=== PATIENT | female | born 1965 | race Caucasian/White ===

== ENCOUNTER 2016-08-25 22:58 | Emergency (ER) | payer MEDICARE, OTHER ==
[~2016-08-25 22:58] MED LIST: DOXYCYCLINE HY100 MG PO; NEURONTIN 100100 MG PO
[2016-08-26 03:50] LABS: BUN/CREATININE RATIO 14 (0-10)
[2016-08-26 04:05] LABS: HEMOGLOBIN 9.3 gm/dl (12.3-15.3); RED BLOOD COUNT 3.86 M/UL (4.00-5.10); WHITE BLOOD COUNT 12.1 K/UL (4.5-11.0)
== END 2016-08-26 07:36 | disposition home or self-care (01) ==
LOC: ER1 22:58
PROVIDERS: Student in an Organized Health Care Education/Training Program
DX: M79.662 Pain in left lower leg (principal); M79.661 Pain in right lower leg; D72.829 Elevated white blood cell count, unspecified; J44.9 Chronic obstructive pulmonary disease, unspecified; J45.909 Unspecified asthma, uncomplicated; Z88.5 Allergy status to narcotic agent; Z79.899 Other long term (current) drug therapy
CPT/HCPCS: 36415; 80053; 83880; 85025; 85379; 96361; 96374; 99283; J2270

== ENCOUNTER → 2020-07-28 | Outpatient (CLI) | payer MEDICARE, OTHER ==
[~2020-07-28] MED LIST changes: +ASPIRIN CHEWABL81 MG PO; +FLEXERIL 10 MG10 MG PO; +IBUPROFEN600 MG PO; +NAPROSYN500 MG PO
[2020-07-28 16:00] LABS: HEMOGLOBIN 12.5 gm/dl (12.3-15.3); RED BLOOD COUNT 4.57 M/UL (4.00-5.10); WHITE BLOOD COUNT 5.5 K/UL (4.5-11.0)
[2020-07-28 16:24] LABS: BUN/CREATININE RATIO 14 (0-10)
[2020-07-30 06:12] LABS: HBSAG SCREEN Negative (Negative); HEP A AB, IGM Negative (Negative); HEP B CORE AB, IGM Negative (Negative); HEP C VIRUS AB <0.1 (0.0-0.9); VITAMIN D, 25-HYDROXY 33.3 ng/mL (30.0-100.0)
== END ==
LOC: LAB 13:37
PROVIDERS: Nurse Practitioner Family
DX: L03.90 Cellulitis, unspecified (principal); E05.20 Thyrotoxicosis with toxic multinodular goiter without thyrotoxic crisis or storm; E87.5 Hyperkalemia; E87.6 Hypokalemia; I10 Essential (primary) hypertension; E55.9 Vitamin D deficiency, unspecified
CPT/HCPCS: 36415; 80053; 80061; 80074; 83036; 84439; 84443; 84481; 85027

== ENCOUNTER 2021-08-29 06:53 | Inpatient (IN) | payer MEDICARE, OTHER ==
[~2021-08-29] VITALS: Ht 149.9 cm; Wt 68.9 kg
[2021-08-29 07:39] LABS: RED BLOOD COUNT 5.78 M/UL (4.00-5.10); WHITE BLOOD COUNT 13.9 K/UL (4.5-11.0)
[2021-08-29 08:01] LABS: BUN/CREATININE RATIO 23 (0-10)
[2021-08-29] MEDS ORDERED: BUPRENORPHIN-N1 EACH SL (10:34)
[2021-08-29] MEDS ORDERED: FAMOTIDINE40 MG PO (10:40)
[2021-08-29] MEDS ORDERED: WELLBUTRIN XL300 MG PO (10:40)
[2021-08-30 05:45] LABS: WHITE BLOOD COUNT 12.1 K/UL (4.5-11.0)
[2021-08-30 05:47] LABS: HEMOGLOBIN 12.2 gm/dl (12.3-15.3); RED BLOOD COUNT 4.52 M/UL (4.00-5.10)
[2021-08-30 14:24] LABS: BUN/CREATININE RATIO 21 (0-10)
[2021-08-31 06:51] LABS: HEMOGLOBIN 11.4 gm/dl (12.3-15.3); RED BLOOD COUNT 4.38 M/UL (4.00-5.10)
[2021-08-31 06:55] LABS: WHITE BLOOD COUNT 8.8 K/UL (4.5-11.0)
[2021-08-31 09:43] LABS: BUN/CREATININE RATIO 19 (0-10)
[2021-09-01 18:34] LABS: HEMOGLOBIN 11.7 gm/dl (12.3-15.3); RED BLOOD COUNT 4.39 M/UL (4.00-5.10); WHITE BLOOD COUNT 8.2 K/UL (4.5-11.0)
[2021-09-01 18:56] LABS: BUN/CREATININE RATIO 13 (0-10)
[2021-09-02 02:24] LABS: HEMOGLOBIN 11.3 gm/dl (12.3-15.3); RED BLOOD COUNT 4.33 M/UL (4.00-5.10); WHITE BLOOD COUNT 7.9 K/UL (4.5-11.0)
[2021-09-02 02:51] LABS: BUN/CREATININE RATIO 12 (0-10)
--- NOTE | 2021-09-02 07:10 | NUR ---
Tamia. - 09/01/21 - 1615 PT C/O SEVERE ABD PAIN. STATES PAIN IS DIFFUSE OVER ALL ABD. PT ORDERED SOFT DIET BUT EATING CHIPS, RICE KRISPIE TREATS, CANDY, FAZOLIS AND DR CAMPBELL. HEARTRATE - SR 130-140'S. NOTIFIED. DILAUDID GIVEN. METOPROLOL GIVEN PER NEW ORDER. PT REPORTS RELIEF OF PAIN AFTER MED ADM.
[2021-09-03 02:58] LABS: HEMOGLOBIN 12.6 gm/dl (12.3-15.3); RED BLOOD COUNT 4.69 M/UL (4.00-5.10); WHITE BLOOD COUNT 9.3 K/UL (4.5-11.0)
[2021-09-03] MEDS ORDERED: LOPRESSOR 25 MG25 MG PO (09:54)
[2021-09-03] MEDS ORDERED: POLYETHYLENE GL17 GM PO (09:54)
[2021-09-03] MEDS ORDERED: AMOX TR-K CLV1 EAC4 PO (09:54)
[2021-09-03] MEDS ORDERED: PHENERGAN 12.12.5 M1 PO (09:54)
[2021-09-03] MEDS ORDERED: PROTONIX40 MG PO (12:43)
[2021-09-03] MEDS ORDERED: CARAFATE 1 GM TA1 GM PO (16:05)
== END 2021-09-03 17:03 | disposition home or self-care (01) | DRG 872 ==
LOC: ER1 06:53 → PROG CARE 08:52 → CDU 08:52 → PROG CARE 21:47
PROVIDERS: Emergency Medicine; Internal Medicine; Physician Assistant Medical; ADMIT Internal Medicine
DX: A41.9 Sepsis, unspecified organism (principal); F11.20 Opioid dependence, uncomplicated; K56.50 Intestinal adhesions [bands], unspecified as to partial versus complete obstruction; Z20.822 Contact with and (suspected) exposure to COVID-19; F32.A Depression, unspecified; F41.9 Anxiety disorder, unspecified; G89.4 Chronic pain syndrome; J44.9 Chronic obstructive pulmonary disease, unspecified; R13.10 Dysphagia, unspecified; K21.9 Gastro-esophageal reflux disease without esophagitis; I50.9 Heart failure, unspecified; R74.01 Elevation of levels of liver transaminase levels; Z90.49 Acquired absence of other specified parts of digestive tract; Z98.890 Other specified postprocedural states; Z83.3 Family history of diabetes mellitus; Z98.891 History of uterine scar from previous surgery
CPT/HCPCS: 36415; 70450; 71045; 74018; 80053; 81001; 82550; 82553; 83605; 83690; 83735; 84484; 85025; 85027; 86140; 87040; 93005; 96374; 96375; 96376; 99285; J0360; J0696; J1170; J2405; J2543; J2550; U0002

== ENCOUNTER 2021-11-08 09:38 | Emergency (ER) | payer MEDICARE, OTHER ==
[~2021-11-08 09:38] MED LIST changes: +AMOX TR-K CLV1 EAC4 PO; +BUPRENORPHIN-N1 EACH SL; +CARAFATE 1 GM TA1 GM PO; +FAMOTIDINE40 MG PO; +LOPRESSOR 25 MG25 MG PO; +PHENERGAN 12.12.5 M1 PO; +POLYETHYLENE GL17 GM PO; +PROTONIX40 MG PO; +WELLBUTRIN XL300 MG PO
[2021-11-08] MEDS ORDERED: MELOXICAM15 MG PO (13:31)
== END 2021-11-08 13:40 | disposition home or self-care (01) ==
LOC: ER1 09:38
DX: S93.402A Sprain of unspecified ligament of left ankle, initial encounter (principal); M25.562 Pain in left knee; I83.92 Asymptomatic varicose veins of left lower extremity; R09.81 Nasal congestion; J44.9 Chronic obstructive pulmonary disease, unspecified; I50.9 Heart failure, unspecified; F17.290 Nicotine dependence, other tobacco product, uncomplicated; Z88.5 Allergy status to narcotic agent; X58.XXXA Exposure to other specified factors, initial encounter; Y92.009 Unspecified place in unspecified non-institutional (private) residence as the place of occurrence of the external cause
CPT/HCPCS: 73562; 73590; 73610; 93971; 99284